=== PATIENT | male | born 1945 | race Caucasian/White ===

== ENCOUNTER 2019-09-26 14:48 | Inpatient (IN) | payer MEDICARE ==
[~2019-09-26] VITALS: Ht 188 cm; Wt 61.2 kg
--- NOTE | ~2019-09-26 | CN ---
PATIENT NAME:BRENDA FOURNIER MEDICAL RECORD: [id number] : 43 LOCATION:[address] ADMIT DATE: 09/26/19 ACCOUNT: [id number] CONSULTING PHYSICIAN: ZARINA AYERS MD REFERRING PHYSICIAN: EUGENE ALVAREZ MD DATE OF CONSULTATION: 09/26/2019 Cardiology Consultation ADMITTING DIAGNOSES: 1. Chest pain, atypical. 2. Nausea and vomiting. 3. Coronary artery disease. 4. Previous PTCA and stent. 5. Hypertension. 6. Hyperlipidemia. 7. Diabetes. HISTORY OF PRESENT ILLNESS: Mr. Fournier has had 3 days of nausea and vomiting. Today, he started developing chest pain. He does have a history of coronary artery disease, PTCA and stent at another institution. His chest pain is having today is not at all like the pain he had with his angina. This is definitely positional pain and outlines the center of his chest and his esophagus with this. It is worse when he was actually vomiting. His EKG is with no ST-T changes. Troponin is normal. PHYSICAL EXAMINATION: CONSTITUTIONAL/GENERAL APPEARANCE: Well nourished, well developed, appears stated age. EYES: Lids and conjunctivae noninjected. No discharge. No pallor. ENT: Lips within normal limit. No cyanosis. No pallor. NECK: Carotid arteries, bilateral normal upstroke. No bruits. No thrills. No jugular venous pressure or distention. CERVICAL LYMPH NODES: Nontender. Nonenlarged. THYROID: Not enlarged. No nodules. CARDIOVASCULAR: Precordial exam, nondisplaced. No heaves or pericardial thrills. Rate and rhythm, regular. Heart sounds, normal S1, normal S2. No S3, no gallop, no rub. Systolic murmur, not heard. Diastolic murmur, not heard. RESPIRATORY: Respiratory effort, unlabored. Normal curvature. No thoracic deformity. No chest wall tenderness. Percussion, resonant. Auscultation, clear. No wheezes, no rales, no rhonchi. ABDOMEN: Soft, nondistended, nontender. No abdominal pain, no vomiting and normal appetite. MUSCULOSKELETAL: No joint tenderness, normal gait, normal tone. SKIN: Warm and dry. OVERALL IMPRESSION: Atypical chest pain from the nausea and vomiting. This is not like his previous angina. Troponin is normal. EKG is normal. At this time, no other cardiac workup or treatment is necessary. TRANSINT:[id number] Voice Confirmation ID: [id number] DOCUMENT ID: [id number] CONSULT REPORT [id number] BRENDA FOURNIER JEFFREY MD CC: [id number] DICTATION DATE: 09/26/191614 PRINT MANAGER: 09/26/19 2246 ADM IN [facility] [address] [place] [address]
[~2019-09-26 14:48] MED LIST: ATIVAN2 MG PO; BAYER CHEWABLE81 MG PO; CLEOCIN HCL300 MG PO; DOLOPHINE HCL10 MG PO; EFFEXOR75 MG PO; EUCERIN CREAM120 GM; FISH OIL 500 MG1 CAP PO; GLUCOTROL 5 MG T5 MG PO; HUMALOG 30100 UNITS/ SC; INVANZ1 G/VIAL IM; LAC-HYDRIN 5226 ML TP; LASIX40 MG PO; MIRALAX17 GM PO; MORPHINE SULFAT30 M3 PO; MULTI-DAY VITAM1 TAB PO; NARCAN INJ0.4 MG/ML IV; NORCO 10/325 TA1 TA1 PO; PEPCID20 MG PO; PERCOCET 10/3251 TA1 PO; PLAVIX75 MG PO; PROTONIX40 MG PO; RESTORIL15 MG PO; RIFADIN300 MG PO; RISPERDAL0.25 MG PO; TYLENOL325 MG PO; VITAMIN D2000 UNIT PO; VITAMIN D31000 UNIT PO; XYLOCAINE HCL 2%5 ML IL; ZOFRAN4 MG PO
[2019-09-26 15:36] LABS: CALC OSMOLALITY 286 mosm/kg (275-300); CARBON DIOXIDE 35.7 mmol/L (21.0-32.0); CHLORIDE - SERUM 94 mmol/L (98-107); CREATININE - SERUM 1.5 mg/dL (0.6-1.3); GLUCOSE 106 mg/dL (74-106); POTASSIUM - SERUM 3.2 mmol/L (3.5-5.1); SODIUM 140 mmol/L (136-145); UREA NITROGEN 36 mg/dL (7-18); eGFR NON AFRICAN AMERICAN 48 mL/min (90-120)
[2019-09-26 15:37] LABS: INR 1.44 (0.85-1.17)
[2019-09-26 15:38] LABS: APTT 40.6 SECONDS (22.8-39.4)
[2019-09-26 15:43] LABS: BASOPHILS 0.4 % (0-2); EOSINOPHILS 1.9 % (0-7); HEMATOCRIT 44.9 % (42.0-54.0); HEMOGLOBIN 15.6 g/dL (13.5-17.5); IMMATURE GRANULOCYTES 0.1 % (0-5); LYMPHOCYTES 21.8 % (15-50); MCH 31.9 pg (26.0-34.0); MCHC 34.7 g/dL (31.0-37.0); MCV 91.8 fL (80.0-100.0); MEAN PLATELET VOLUME 10.7 fL (7.4-10.4); MONOCYTES 10.2 % (2-11); NEUTROPHILS 65.6 % (40-80); RBC 4.89 10x6/uL (4.20-6.10); RDW 15.6 % (11.5-14.5); WBC 8.3 10x3/uL (4.8-10.8)
[2019-09-26 15:47] LABS: PLATELET COUNT 84 10x3/uL (130-400)
[2019-09-26 15:53] LABS: ALKALINE PHOSPHATASE 163 U/L (46-116); ALT (SGPT) 30 U/L (10-68); BILIRUBIN - TOTAL 4.28 mg/dL (0.2-1.3); CKMB 1.3 U/L (0.0-3.6); CREATINE KINASE 79 UL (21-232); MAGNESIUM - SERUM 1.8 mg/dL (1.8-2.4); PROTEIN - SERUM 8.1 g/dL (6.4-8.2); TROPONIN-I < 0.017 ng/mL (0.000-0.060)
[2019-09-26 16:38] VITALS: BP 145/88
[2019-09-26 16:38] LABS: APPEARANCE CLEAR (CLEAR); BILIRUBIN NEGATIVE (NEGATIVE); COLOR YELLOW (YELLOW); GLUCOSE NEGATIVE (NEGATIVE); KETONE NEGATIVE (NEGATIVE); NITRITE NEGATIVE (NEGATIVE); PROTEIN NEGATIVE (NEGATIVE); UROBILINOGEN NORMAL (NORMAL)
[2019-09-26 17:25] LABS: PLATELET ESTIMATE DECREASED
--- NOTE | 2019-09-26 18:33 | NUR ---
I have reviewed this patient and I concur with the Shift Assessment completed by the Licensed Practical Nurse today this shift.
[2019-09-26 18:40] VITALS: BP 100/69
--- NOTE | 2019-09-26 19:15 | NUR ---
PT TO ROOM 2130 VIA WHEELCHAIR ACCOMPANIED BY HOSPITAL STAFF. DENIES N/V/D AT THIS TIME. RIGHT LEG AMPUTATION NOTED, PT REPORTS FROM 2012. REQUESTING SANDWICH AND SODA, PROVIDED. DENIES ANY OTHER NEEDS AT THIS TIME. BED IN LOWEST POSITION, SR X2, CALL LIGHT WITHIN REACH. WILL CONTINUE TO MONITOR.
[2019-09-27] VITALS (7 sets, daily range): BP systolic 100–131; BP diastolic 54–73; BMI 17.3
[2019-09-27] MEDS ORDERED: GLUCOPHAGE500 MG PO (00:54)
[2019-09-27 06:55] LABS: BASOPHILS 0.5 % (0-2); EOSINOPHILS 1.8 % (0-7); HEMATOCRIT 40.2 % (42.0-54.0); HEMOGLOBIN 12.4 g/dL (13.5-17.5); IMMATURE GRANULOCYTES 0.2 % (0-5); LYMPHOCYTES 23.3 % (15-50); MCH 29.1 pg (26.0-34.0); MCHC 30.8 g/dL (31.0-37.0); MCV 94.4 fL (80.0-100.0); MEAN PLATELET VOLUME 11.2 fL (7.4-10.4); MONOCYTES 15.5 % (2-11); NEUTROPHILS 58.7 % (40-80); PLATELET COUNT 70 10x3/uL (130-400); RBC 4.26 10x6/uL (4.20-6.10); WBC 6.5 10x3/uL (4.8-10.8)
[2019-09-27 07:13] LABS: PLATELET ESTIMATE DECREASED
[2019-09-27 07:19] LABS: ALBUMIN 3.3 g/dL (3.4-5.0); ANION GAP 14.3 mmol/L (8-16); BILIRUBIN - TOTAL 2.78 mg/dL (0.2-1.3); CALCIUM 8.1 mg/dL (8.5-10.1); CARBON DIOXIDE 30.1 mmol/L (21.0-32.0); CREATININE - SERUM 1.5 mg/dL (0.6-1.3); MAGNESIUM - SERUM 1.5 mg/dL (1.8-2.4); POTASSIUM - SERUM 3.4 mmol/L (3.5-5.1); PROTEIN - SERUM 6.5 g/dL (6.4-8.2)
--- NOTE | 2019-09-27 07:25 | NUR ---
ASSESSMENT DONE, DENIES NEEDS
--- NOTE | 2019-09-27 14:12 | NUR ---
I have reviewed this patient and I concur with the Shift Assessment completed by the Licensed Practical Nurse today this shift.
--- NOTE | 2019-09-27 22:20 | NUR ---
INITIAL ROUNDS COMPLETED AT 1915 HRS. PT DENIES ANY DISCOMFORT. ASSESSMENT COMPLETED AT 2005 HRS. VSS ALERT AND ORIENTED TO PERSON, PLACE AND TIME. R AKA NOTED. DRY, SCABBY AREA NOTED TO L HEEL. LUNGS DIMINISHED IN BASES BILAT. IV TO LFA WITH NS AT 75CC/HR. PM FSBS 168. REG INSULIN 2UNITS GIVEN SUB-Q TO UPPER R ARM. PM MEDS GIVEN. PM SNACK SERVED. PT CURRENTLY RESTING WTIH EYES CLOSED. RESP EVEN AND REGULAR. SR UP X2, CALL LIGHT WITHIN REACH.
[2019-09-28] VITALS: BP 120/70
--- NOTE | 2019-09-28 00:49 | NUR ---
PT RESTING WITH EYES CLOSED. RESP EVEN AND REGULAR. SR UP X2, CALL LIGHT WITHIN REACH.
--- NOTE | 2019-09-28 02:28 | NUR ---
PT RESTING WITH EYES CLOSED. RESP EVEN AND REGULAR. SR UP X2,CALL LIGHT WITHIN REACH.
[2019-09-28 04:00] VITALS: BP 106/59
--- NOTE | 2019-09-28 04:21 | NUR ---
PT RESTING WITH EYES CLOSED. RESP EVEN AND REGULAR. SR UP X2, CALL LIGHT WITHIN REACH.
[2019-09-28 05:13] LABS: BASOPHILS 0.2 % (0-2); EOSINOPHILS 4.3 % (0-7); HEMATOCRIT 37.2 % (42.0-54.0); IMMATURE GRANULOCYTES 0.2 % (0-5); LYMPHOCYTES 32.9 % (15-50); MCH 30.1 pg (26.0-34.0); MCHC 32.3 g/dL (31.0-37.0); MCV 93.2 fL (80.0-100.0); MEAN PLATELET VOLUME 11.6 fL (7.4-10.4); MONOCYTES 9.7 % (2-11); NEUTROPHILS 52.7 % (40-80); PLATELET COUNT 72 10x3/uL (130-400); RBC 3.99 10x6/uL (4.20-6.10); RDW 15.6 % (11.5-14.5)
[2019-09-28 05:23] LABS: WBC 4.1 10x3/uL (4.8-10.8)
[2019-09-28 05:29] LABS: ANION GAP 8.4 mmol/L (8-16); CALCIUM 8.4 mg/dL (8.5-10.1); CREATININE - SERUM 1.3 mg/dL (0.6-1.3); POTASSIUM - SERUM 3.4 mmol/L (3.5-5.1)
[2019-09-28 05:34] LABS: MAGNESIUM - SERUM 1.9 mg/dL (1.8-2.4); PHOSPHOROUS 2.9 mg/dL (2.5-4.9)
--- NOTE | 2019-09-28 06:00 | NUR ---
VSS THROUGHOUT NIGHT. AM FSBS 115. NO COVERAGE NEEDED. AM K+ 3.4. KCL 40MEQ PO GIVEN PER ELECTROLYTE PROTOCOL. NEEDS MET; WILL CONTINUE TO MONITOR.
--- NOTE | 2019-09-28 07:39 | NUR ---
PT RECEIVED IN BED ASLEEP BUT AROUSED ON ENTERING ROOM. HE FELL BACK TO SLEEP WHILE UPDATING BOARD. NO COMPLAINTS AT PRESENT.
[2019-09-28 08:48] VITALS: BP 117/58
[2019-09-28 11:05] LABS: % SATURATION 18 % (15-55); IRON 51 ug/dl (35-150); TOTAL IRON BIND CAPACITY 279 ug/dl (260-445); UNSAT IRON BIND CAPACITY 228 ug/dl (150-375)
[2019-09-28 12:00] VITALS: Ht 188 cm; Wt 61.2 kg
[2019-09-28 13:08] VITALS: BP 127/66
--- NOTE | 2019-09-28 14:11 | NUR ---
PT NOT WANTING DULCOLOX OR MAG CITRATE. TALKED INTO TAKING MIRALAX FOR NOW AND SEEING IF BM HAPPENS. INSTRUCTED WOULD NEED TO TRY OTHER MEDS IF NO RESULTS.
[2019-09-28 17:00] VITALS: BP 116/65
[2019-09-28 20:40] VITALS: BP 111/56
--- NOTE | 2019-09-28 22:37 | NUR ---
INITIAL ROUNDS COMPLETED AT 1910 HRS. PT DENIED ANY DISCOMFORT. ASSESSMET COMPLETED AT 201O HRS. VSS. ALERT AND ORIENTED TO PERSON, PLACE AND TIME. AMANDA NOTED. LUNGS DIMINISHED IN BASES BILAT. IV TO LFA WITH NS AT 75CC/HR. IV PATENT. SMALL DRY FLAKY AREA NOTED TO L HEEL. BRUIES TO BILAT ARMS. PM FSBS 168. 2 UNITS REG INSULIN GIVEN SUB-Q TO UPPER R ABD. PM MEDS GIVEN. PT REFUSES MIRALX. PM SNACK SERVED. PT CURRENTLY RESTING WITH EYES CLOSED. RESP EVEN AND REGULAR. SR UP X2, CALL LIGHT WITHIN REACH.
[2019-09-29 00:30] VITALS: BP 121/54
--- NOTE | 2019-09-29 00:38 | NUR ---
COFFEE GIVEN PER REQUEST. PT DENIES ANY DISCOMFORT. SR UP X2, CALL LIGHT WITHIN REACH.
--- NOTE | 2019-09-29 02:24 | NUR ---
PT RESTING WITH EYES CLOSED. RESP EVEN AND REGULAR. SR UP X2, CALL LIGHT WITHIN REACH.
[2019-09-29 04:36] VITALS: BP 127/64
--- NOTE | 2019-09-29 04:47 | NUR ---
PT AWAKE; DENIES ANY DISCOMFORT. CALL LIGHT WITHIN REACH.
--- NOTE | 2019-09-29 06:36 | NUR ---
VSS THROUGHOUT NIGHT. PT DENIED ANY DISCOMFORT. AM FSBS 152. PT REFUSED INSULIN. NEEDS MET; WILL CONTINUE TO MONITOR.
--- NOTE | 2019-09-29 07:25 | NUR ---
PT RESTING. RR EVEN AND UNLABORED. DENIES NEEDS OR PAIN AT THIS TIME. BED INLOWEST POSITION. CALL LIGHT WITHIN REACH. WILL CONTINUE TO MONITOR.
[2019-09-29 08:04] LABS: BASOPHILS 0.5 % (0-2); EOSINOPHILS 4.1 % (0-7); HEMATOCRIT 37.1 % (42.0-54.0); HEMOGLOBIN 12.3 g/dL (13.5-17.5); LYMPHOCYTES 23.7 % (15-50); MCH 30.8 pg (26.0-34.0); MCHC 33.2 g/dL (31.0-37.0); MEAN PLATELET VOLUME 11.5 fL (7.4-10.4); NEUTROPHILS 63.7 % (40-80); PLATELET COUNT 70 10x3/uL (130-400); RBC 3.99 10x6/uL (4.20-6.10); RDW 15.5 % (11.5-14.5); WBC 4.4 10x3/uL (4.8-10.8)
[2019-09-29 08:13] LABS: ANION GAP 12.8 mmol/L (8-16); CALCIUM 8.5 mg/dL (8.5-10.1); CARBON DIOXIDE 28.1 mmol/L (21.0-32.0); CREATININE - SERUM 1.1 mg/dL (0.6-1.3); MAGNESIUM - SERUM 1.6 mg/dL (1.8-2.4); PHOSPHOROUS 2.4 mg/dL (2.5-4.9); POTASSIUM - SERUM 3.9 mmol/L (3.5-5.1)
[2019-09-29 09:59] VITALS: BP 135/74; BP 158/95
[2019-09-29 11:04] LABS: PLATELET ESTIMATE DECREASED
[2019-09-29 11:05] LABS: ROULEAUX OCC
[2019-09-29 12:32] VITALS: BP 145/83
--- NOTE | 2019-09-29 17:18 | MORECARE ---
CASE MANAGEMENT DISCHARGE SUMMARY PATIENT: BRENDA FOURNIER UNIT: [id number] ADM DATE: 09/26/19 AGE: 74 : 43 SEX: M ROOM/BED: D.2130 AUTHOR: ASHLEY SOLOMON PHYSICIAN: REFERRING PHYSICIAN: EUGENE ALVAREZ MD DATE OF SERVICE: 09/29/19 Discharge Plan Patient Name: BRENDA FOURNIER [facility] [facility] 1945 Planned Disposition: Home Anticipated Discharge Date: Discharge Date: Expected LOS: Initial Reviewer: [id number] Initial Review Date: 09/26/2019 Generated: 09/29/19 6:17 pm DCPIA - Discharge Planning Initial Assessment Updated by [email or web address]: Patrick Rodriguez on 09/29/19 5:16 pm * Is the patient Alert and Oriented? Yes * How many steps to enter\exit or inside your home? RAMP * PCP DR. ANTON [place] * Pharmacy [facility] IN [place] * Preadmission Environment Home with Family * ADLs Independent * Equipment Hospital Bed Power Chair or Electric Scooter Shower Chair Trapeze Wheelchair * Other Equipment NO MEDICAL EQUIPMENT PROVIDER [facility] POWER CHAIR IS NOT CURRENTLY WORKING * List name and contact numbers for known caregivers / representatives who currently or will assist patient after discharge: ESTELA MURPHY, CAREGIVER, LESVIA FOURNIER, SON, * Verbal permission to speak to the caregivers and representatives has been obtained from the patient. Yes * Community resources currently utilized None * Please name any agencies selected above. NONE * Additional services required to return to the preadmission environment? No * Can the patient safely return to the preadmission environment? Yes * Has this patient been hospitalized within the prior 30 days at any hospital? No Patient Name: BRENDA FOURNIER Page [phone] at 1718 All edits/amendments must be made on the electronic document DICTATION DATE: 09/29/191716 UPPER TRIMMER: SARAH 09/29/191716 RPT#: [id number] DC DATE: STATUS: ADM IN [facility] [address] [place] [address] END OF REPORT
--- NOTE | 2019-09-29 17:26 | MORECARE ---
CASE MANAGEMENT DISCHARGE SUMMARY PATIENT: BRENDA FOURNIER UNIT: [id number] ADM DATE: 09/26/19 AGE: 74 : 44 SEX: M ROOM/BED: D.2130 AUTHOR: NEHA,DOC PHYSICIAN: REFERRING PHYSICIAN: EUGENE ALVAREZ MD DATE OF SERVICE: 09/29/19 Discharge Plan Patient Name: BRENDA FOURNIER Facility: [facility]:[place] : 1945 Planned Disposition: Home Anticipated Discharge Date: Discharge Date: Expected LOS: Initial Reviewer: [email or web address] Initial Review Date: 09/26/2019 Generated: 09/29/19 6:26 pm Comments DCP- Discharge Planning Updated by [id number]: Patrick Rodriguez on 09/29/19 4:[address] Patient Name: BRENDA FOURNIER Admission Status: ER Accout number: [id number] Admission Date: 09-26-2019 : 1945 Admission Diagnosis: Attending: EUGENE ALVAREZ Current LOS: 3 Anticipated DC Date: Planned Disposition: Home Primary Insurance: MEDICARE A & B Discharge Planning Comments: CM RECEIVED ORDER TO VERY PT HAVING HOME CAREGIVER. CM MET WITH PT IN ROOM TO DISCUSS DISCHARGE PLANNING AND NEEDS. PT REPORTS LIVING AT HOME INDEPENDENTLY WITH A CAREGIVER WHOM ASSISTS WITH TRANSPORTATION, CLEANING AND COOKING. SHE IS NOT PAID BUT LIVES IN PT'S HOME. SHE IS HOME DURING NIGHT HOURS AND IN AND OUT DURING DAYTIME HOURS. PT HAS NON WORKING POWER WHEELCHAIR, HOSPITAL BED, TRAPEZE, WHEELCHAIR AND SHOWER CHAIR WITH NO MEDICAL EQUIPMENT PROVIDER PREFERENCE. PT HAS NO OUTSIDE SERVICES ASSISTING IN THE HOME. CM DISCUSSED AVAILABILITY OF HOME HEALTH, REHAB SERVICES AND MEDICAL EQUIPMENT. PT DENIES DISCHARGE NEEDS, REPORTS HIS CAREGIVER WILL PICK HIM UP FOR DISCHARGE HOME. CM TO CONTINUE TO FOLLOW AND ASSIST IF NEEDED. Adult Secondary Education Instructor: Patrick Rodriguez DCPIA - Discharge Planning Initial Assessment Updated by [id number]: Patrick Rodriguez on 09/29/19 5:16 pm * Is the patient Alert and Oriented? Yes * How many steps to enter\exit or inside your home? RAMP * PCP DR. ANTON [place] * Pharmacy [facility] IN [place] * Preadmission Environment Home with Family * ADLs Independent * Equipment Hospital Bed Power Chair or Electric Scooter Shower Chair Trapeze Wheelchair * Other Equipment NO MEDICAL EQUIPMENT PROVIDER [employer]ERNECE POWER CHAIR IS NOT CURRENTLY WORKING * List name and contact numbers for known caregivers / representatives who currently or will assist patient after discharge: ESTELA MURPHY, CAREGIVER, LESVIA FOURNIER, SON, * Verbal permission to speak to the caregivers and representatives has been obtained from the patient. Yes * Community resources currently utilized None * Please name any agencies selected above. NONE * Additional services required to return to the preadmission environment? No * Can the patient safely return to the preadmission environment? Yes * Has this patient been hospitalized within the prior 30 days at any hospital? No Last DP export: 09/29/19 4:18 Patient Name: BRENDA FOURNIER Page [id number] at 1726 All edits/amendments must be made on the electronic document DICTATION DATE: 09/29/191725 DULITE MACHINE BLUER: SARAH 09/29/191725 RPT#: [id number] [place] DATE: STATUS: ADM IN [facility] [address] [place] [address] END OF REPORT
--- NOTE | 2019-09-29 17:56 | NUR ---
I have reviewed this patient and I concur with the Shift Assessment completed by the Licensed Practical Nurse today this shift.
[2019-09-29 18:26] VITALS: BP 140/79
--- NOTE | 2019-09-29 19:34 | NUR ---
EVENING ROUNDS COMPLETE. PT SITTING UP IN BED, AAOX4. PT DENIES ANY PAIN OR NEEDS AT THIS TIME. CL IN REACH, BED IN LOWEST POSITION.
[2019-09-29 20:37] VITALS: BP 141/71
[2019-09-30 00:30] VITALS: BP 127/69
[2019-09-30 04:32] VITALS: BP 132/68
[2019-09-30 06:04] LABS: BASOPHILS 0.6 % (0-2); EOSINOPHILS 5.5 % (0-7); HEMATOCRIT 36.8 % (42.0-54.0); HEMOGLOBIN 12.1 g/dL (13.5-17.5); IMMATURE GRANULOCYTES 0.3 % (0-5); LYMPHOCYTES 26.1 % (15-50); MCH 30.4 pg (26.0-34.0); MCHC 32.9 g/dL (31.0-37.0); MCV 92.5 fL (80.0-100.0); MEAN PLATELET VOLUME 11.5 fL (7.4-10.4); MONOCYTES 6.9 % (2-11); NEUTROPHILS 60.6 % (40-80); PLATELET COUNT 63 10x3/uL (130-400); RBC 3.98 10x6/uL (4.20-6.10); RDW 15.4 % (11.5-14.5); WBC 3.5 10x3/uL (4.8-10.8)
[2019-09-30 06:21] LABS: ANION GAP 12.4 mmol/L (8-16); CALCIUM 8.6 mg/dL (8.5-10.1); CREATININE - SERUM 1.1 mg/dL (0.6-1.3); PHOSPHOROUS 2.1 mg/dL (2.5-4.9); POTASSIUM - SERUM 4.4 mmol/L (3.5-5.1)
--- NOTE | 2019-09-30 07:52 | NUR ---
PT RESTING. RR EVEN AND UNLABORED. DENIES NEEDS OR PAIN AT THIS TIME. IV NOTED TO LEFT FOREARM INFUSING NS @ 75MLS/HR. BED IN LOWEST POSITION. ALL LIGHT WITHIN REACH. WILL CONTINUE TO MONITOR.
[2019-09-30 08:16] VITALS: BP 144/76
[2019-09-30 12:11] VITALS: BP 146/80
--- NOTE | 2019-09-30 12:17 | NUR ---
NUTRITION F/U PT TOLERATING RENAL DIET WITH 100% INTAKE RECENT MEALS. WILL CONTINUE TO PROVIDE DIET AND MONITOR PO INTAKE. RD FOLLOWING
[2019-09-30 15:09] LABS: HEPATITIS C ANTIBODY <0.1 S/CO RAT (0.0-0.9)
[2019-09-30 15:47] VITALS: BP 124/64
--- NOTE | 2019-09-30 16:01 | NUR ---
I have reviewed this patient and I concur with the Shift Assessment completed by the Licensed Practical Nurse today this shift.
--- NOTE | 2019-09-30 19:34 | NUR ---
RECEIVED UP IN BED WITH EYES OPENA ND TV ON. ALERT AND ORIENTED X4. UP AD RAD TO B/R. O2 @ 2 LITERS PER N/C IN PLACE. RIGHT AKA. LEFT HEEL BRAIN. IV TO LEFT FA WITH NS AT 75CC/HR. DENIES ANY NEEDS AT THIS TIME.
[2019-09-30 20:00] VITALS: BP 145/76
[2019-10-01] VITALS: BP 135/66
[2019-10-01 04:00] VITALS: BP 164/82
[2019-10-01 07:21] LABS: BASOPHILS 0.6 % (0-2); EOSINOPHILS 5.1 % (0-7); HEMATOCRIT 35.1 % (42.0-54.0); HEMOGLOBIN 11.6 g/dL (13.5-17.5); IMMATURE GRANULOCYTES 0.3 % (0-5); MCH 30.3 pg (26.0-34.0); MCV 91.6 fL (80.0-100.0); MONOCYTES 9.6 % (2-11); NEUTROPHILS 62.4 % (40-80); PLATELET COUNT 65 10x3/uL (130-400); RBC 3.83 10x6/uL (4.20-6.10); RDW 15.4 % (11.5-14.5); WBC 3.3 10x3/uL (4.8-10.8)
[2019-10-01 07:31] LABS: CALC OSMOLALITY 285 mosm/kg (275-300); CALCIUM 8.1 mg/dL (8.5-10.1); CARBON DIOXIDE 25.7 mmol/L (21.0-32.0); CHLORIDE - SERUM 108 mmol/L (98-107); GLUCOSE 89 mg/dL (74-106); MAGNESIUM - SERUM 1.9 mg/dL (1.8-2.4); PHOSPHOROUS 2.6 mg/dL (2.5-4.9); POTASSIUM - SERUM 3.8 mmol/L (3.5-5.1); SODIUM 142 mmol/L (136-145); UREA NITROGEN 24 mg/dL (7-18); eGFR NON AFRICAN AMERICAN 77 mL/min (90-120)
--- NOTE | 2019-10-01 07:50 | NUR ---
REPORT RECEIVED. WILL CONTINUE WITH POC. PT CURRENTLY LYING SEMI FOWLERS. CALL LIGHT W/I REACH. PT IS ASLEEP WITH EYES CLOSED AT THIS TIME. RR EVEN AND UNLABORED ON 2L 02. NS INFUSING @75ML/HR VIA L.FOR PIV. NO S/S OF DISTRESS NOTED. WILL CTM.
[2019-10-01 08:26] LABS: PLATELET ESTIMATE DECREASED
[2019-10-01 08:28] LABS: ANISOCYTOSIS OCC
[2019-10-01 08:42] VITALS: BP 147/80
[2019-10-01 09:24] LABS: APTT 34.4 SECONDS (22.8-39.4); INR 1.21 (0.85-1.17); PROTIME 14.8 SECONDS (11.6-15.0)
--- NOTE | 2019-10-01 12:50 | NUR ---
CM SPOKE WITH PATIENT ABOUT DC ORDERS, PATIENT STATED THAT IS PERLITE GRINDER IS [place] AND HE WILL NOT HAVE A RIDE TILL TOMORROW, PATIENT WILL BE DISCHARGED IN AM.
[2019-10-01 14:05] VITALS: BP 156/80
--- NOTE | 2019-10-01 15:50 | NUR ---
NOTIFIED PT OF THE DISCHARGE AND HE STATED THAT HE DOES NOT HAVE A RIDE HOME UNTIL TOMORROW. NOTIFIED EDITOR MAGAZINE. WILL CTM.
--- NOTE | 2019-10-01 16:06 | NUR ---
I have reviewed this patient and I concur with the Shift Assessment completed by the Licensed Practical Nurse today this shift.
[2019-10-01 16:20] VITALS: BP 149/73
--- NOTE | 2019-10-01 19:38 | NUR ---
REPORT RECIEVED AND ROUNDING COMPLETE. PATIENT LAYING IN BED IN LOW FOWLERS. EMPTIED 700CC OUT OF URINAL. PATIENT STATES HE HAS FOUND A RIDE HOME FOR TOMORROW. PATIENT STATED HE HAS NO NEEDS AT THIS TIME. PATIENT SHOWS NO S/SX OF DISTRESS AT THIS TIME. CALL LIGHT WITHIN REACH AND BED IN LOWEST LOCKED POSITION.
[2019-10-01 20:00] VITALS: BP 150/78
[2019-10-02] VITALS: BP 142/66
[2019-10-02 04:00] VITALS: BP 128/82
[2019-10-02 05:39] LABS: BASOPHILS 0.6 % (0-2); EOSINOPHILS 5.9 % (0-7); HEMATOCRIT 37.5 % (42.0-54.0); HEMOGLOBIN 12.5 g/dL (13.5-17.5); IMMATURE GRANULOCYTES 0.2 % (0-5); LYMPHOCYTES 25.5 % (15-50); MCH 30.7 pg (26.0-34.0); MCHC 33.3 g/dL (31.0-37.0); MCV 92.1 fL (80.0-100.0); MEAN PLATELET VOLUME 10.8 fL (7.4-10.4); MONOCYTES 6.1 % (2-11); NEUTROPHILS 61.7 % (40-80); RBC 4.07 10x6/uL (4.20-6.10); RDW 15.1 % (11.5-14.5)
[2019-10-02 05:42] LABS: PLATELET COUNT 88 10x3/uL (130-400); WBC 5.1 10x3/uL (4.8-10.8)
[2019-10-02 06:00] LABS: CALC OSMOLALITY 282 mosm/kg (275-300); CALCIUM 8.4 mg/dL (8.5-10.1); CARBON DIOXIDE 27.3 mmol/L (21.0-32.0); CHLORIDE - SERUM 106 mmol/L (98-107); GLUCOSE 78 mg/dL (74-106); MAGNESIUM - SERUM 1.6 mg/dL (1.8-2.4); PHOSPHOROUS 2.9 mg/dL (2.5-4.9); POTASSIUM - SERUM 3.6 mmol/L (3.5-5.1); SODIUM 141 mmol/L (136-145); UREA NITROGEN 21 mg/dL (7-18); eGFR NON AFRICAN AMERICAN 77 mL/min (90-120)
--- NOTE | 2019-10-02 07:25 | NUR ---
PT RECEIVED LAYING IN BED. HIS BLOOD SUGAR LITTLE LOW THIS MORNING, NURSE TREATED. NO COMPLAINTS AT PRESENT. WORKING ON DISCHARGE OUT TODAY.
--- NOTE | 2019-10-02 08:23 | MORECARE ---
CASE MANAGEMENT DISCHARGE SUMMARY PATIENT: BRENDA FOURNIER UNIT: [id number] ADM DATE: 09/26/19 AGE: 74 : 44 SEX: M ROOM/BED: D.2137 AUTHOR: ASHLEY SOLOMON PHYSICIAN: REFERRING PHYSICIAN: EUGENE ALVAREZ MD DATE OF SERVICE: 10/02/19 Discharge Plan Patient Name: BRENDA FOURNIER Facility: [facility]:[place] : 1945 Planned Disposition: Home Anticipated Discharge Date: 10/02/19 Discharge Date: Expected LOS: 6 Initial Reviewer: [id number] Initial Review Date: 09/26/2019 Generated: 10/02/19 9:22 am Comments DCP- Discharge Planning Updated by [id number]: Patrick Rodriguez on 10/02/19 7:[address] Patient Name: BRENDA FOURNIER Encounter No: [id number] : 1945 Primary Insurance: MEDICARE A & B Anticipated DC Date: 10-02-2019 Planned Disposition: Home DCP follow-up note: CM ADVISED THAT PT DID NOT LEAVE YESTERDAY DUE TO CAREGIVER BEING OUT OF TOWN FOR [place] AND PT NOT HAVING RIDE HOME. CM MET WITH PT IN ROOM TO DISCUSS DISCHARGE NEEDS AND PLANNING. CM DISCUSSED AVAILABILITY OF HOME HEALTH, REHAB SERVICES AND MEDICAL EQUIPMENT. PT DENIES DISCHARGE NEEDS. PT DENIES NEED OF ASSISTANCE TO GET HOME, REPORTS HE IS CALLING NOW TO GET A RIDE HOME TODAY. PT STATES IF HIS CAREGIVER IS NOT ABLE TO PICK HIM UP, HE WILL CALL MEDICAID TRANSPSORTATION HE HAS PERMISSION TO PAY THEM FOR SERVICES NEEDED. IMPORTANT MESSAGE FROM MEDICARE PROVIDED AND EXPLAINED. BEDSIDE NURSE NOTIFIED. CONGREGATIONAL CARE PASTOR NURSE NOTIFIED. ELICEO Thompson DCP- Discharge Planning Updated by [id number]: Patrick Rodriguez on 09/29/19 4:[address] Patient Name: BRENDA FOURNIER Admission Status: ER Accout number: [id number] Admission Date: 09-26-2019 : 1945 Admission Diagnosis: Attending: EUGENE ALVAREZ Current LOS: 3 Anticipated DC Date: Planned Disposition: Home Primary Insurance: MEDICARE A & B Discharge Planning Comments: CM RECEIVED ORDER TO VERY PT HAVING HOME CAREGIVER. CM MET WITH PT IN ROOM TO DISCUSS DISCHARGE PLANNING AND NEEDS. PT REPORTS LIVING AT HOME INDEPENDENTLY WITH A CAREGIVER WHOM ASSISTS WITH TRANSPORTATION, CLEANING AND COOKING. SHE IS NOT PAID BUT LIVES IN PT'S HOME. SHE IS HOME DURING NIGHT HOURS AND IN AND OUT DURING DAYTIME HOURS. PT HAS NON WORKING POWER WHEELCHAIR, HOSPITAL BED, TRAPEZE, WHEELCHAIR AND SHOWER CHAIR WITH NO MEDICAL EQUIPMENT PROVIDER PREFERENCE. PT HAS NO OUTSIDE SERVICES ASSISTING IN THE HOME. CM DISCUSSED AVAILABILITY OF HOME HEALTH, REHAB SERVICES AND MEDICAL EQUIPMENT. PT DENIES DISCHARGE NEEDS, REPORTS HIS CAREGIVER WILL PICK HIM UP FOR DISCHARGE HOME. CM TO CONTINUE TO FOLLOW AND ASSIST IF NEEDED. Machine Wood Sander: Patrick Rodriguez DCPIA - Discharge Planning Initial Assessment Updated by [id number]: Patrick Rodriguez on 09/29/19 5:16 pm * Is the patient Alert and Oriented? Yes * How many steps to enter\exit or inside your home? RAMP * PCP DR. ANTON [place] * Pharmacy [facility] IN [place] * Preadmission Environment Home with Family * ADLs Independent * Equipment Hospital Bed Power Chair or Electric Scooter Shower Chair Trapeze Wheelchair * Other Equipment NO MEDICAL EQUIPMENT PROVIDER PREFERNECE POWER CHAIR IS NOT CURRENTLY WORKING * List name and contact numbers for known caregivers / representatives who currently or will assist patient after discharge: ESTELA MURPHY, CAREGIVER, LESVIA FOURNIER, SON, * Verbal permission to speak to the caregivers and representatives has been obtained from the patient. Yes * Community resources currently utilized None * Please name any agencies selected above. NONE * Additional services required to return to the preadmission environment? No * Can the patient safely return to the preadmission environment? Yes * Has this patient been hospitalized within the prior 30 days at any hospital? No Coverage Notice Reviewer: [id number] - Patrick Rodriguez Notice Issued Date-Time: 10/02/2019 7:35 Notice Type: IM Discharge Notice Notice Delivered To: Patient Relationship to Patient: Painter Mirror Name: Delivery Method: HAND - Hand Delivered Adelita Days: Prior Verbal Notification: Recipient Understood Notice: Yes Recipient Signature: Yes Med Rec Note Co-signed by Attending: Coverage Notice Comment: Last DP export: 09/29/19 4:26 Patient Name: BRENDA FOURNIER Page [id number] at 0823 All edits/amendments must be made on the electronic document DICTATION DATE: 10/02/19821 SPORTS STATISTICIAN: SARAH 10/02/19821 RPT#: [id number] DC DATE: STATUS: ADM IN [facility] [address] [place] [address] END OF REPORT
[2019-10-02 09:10] VITALS: BP 128/62
--- NOTE | 2019-10-02 10:38 | NUR ---
UPON ADMIT PATIENT HAS NOT HAD A FLU SHOT. WHEN ASKED IF HE WANTS ONE, HE TELLS ANDREI BARR PRIMARY NURSE THAT HE HAS HAD ONE.
--- NOTE | 2019-10-02 12:13 | MORECARE ---
CASE MANAGEMENT DISCHARGE SUMMARY PATIENT: BRENDA FOURNIER UNIT: [id number] ADM DATE: 09/26/19 AGE: 74 : 44 SEX: M ROOM/BED: D.3370 AUTHOR: ASHLEY SOLOMON PHYSICIAN: REFERRING PHYSICIAN: EUGENE ALVAREZ MD DATE OF SERVICE: 10/02/19 Discharge Plan Patient Name: BRENDA FOURNIER Facility: [facility]:[place] : 1945 Planned Disposition: Home Anticipated Discharge Date: 10/02/19 Discharge Date: Expected LOS: 6 Initial Reviewer: [id number] Initial Review Date: 09/26/2019 Generated: 10/02/19 1:12 pm Comments DCP- Discharge Planning Updated by [id number]: Patrick Rodriguez on 10/02/19 11:[address] Patient Name: BRENDA FOURNIER Encounter No: [id number] : 1945 Primary Insurance: MEDICARE A & B Anticipated DC Date: 10-02-2019 Planned Disposition: Home DCP follow-up note: CM ADVISED THAT PT DID NOT LEAVE YESTERDAY DUE TO CAREGIVER BEING OUT OF TOWN FOR [place] AND PT NOT HAVING RIDE HOME. CM MET WITH PT IN ROOM TO DISCUSS DISCHARGE NEEDS AND PLANNING. CM DISCUSSED AVAILABILITY OF HOME HEALTH, REHAB SERVICES AND MEDICAL EQUIPMENT. PT DENIES DISCHARGE NEEDS. PT DENIES NEED OF ASSISTANCE TO GET HOME, REPORTS HE IS CALLING NOW TO GET A RIDE HOME TODAY. PT STATES IF HIS CAREGIVER IS NOT ABLE TO PICK HIM UP, HE WILL CALL MEDICAID TRANSPSORTATION HE HAS PERMISSION TO PAY THEM FOR SERVICES NEEDED. IMPORTANT MESSAGE FROM MEDICARE PROVIDED AND EXPLAINED. BEDSIDE NURSE NOTIFIED. PERSONAL LINES INSURANCE ADVISOR NURSE NOTIFIED. Patrick Rodriguez, CASE MANAGEMENT Appended by Patrick Rodriguez on 10/02/2019 12:10 PHOTOCOPYING EQUIPMENT MECHANIC: CM SPOKE TO PT IN ROOM AT HIS REQUEST, PT REPORTS HAVING NO FAMILY OR FRIENDS AVAILABLE TO BRING HIS WHEELCHAIR OR PICK HIM UP. PT IS NOT ABLE TO RIDE [place] WITHOUT HIS WHEELCHAIR. PT HAS CALLED AND BOOKED A RIDE WITH MODIFIED [employer]BILE FOR 0900 IN THE MORNING MODIFIED MOBILE IS BOOKED WITH TRANSPORT CLIENTS TODAY. CM NOTIFED PERSONAL LINES INSURANCE ADVISOR NURSE. ELICEO SAM DCP- Discharge Planning Updated by [id number]: Patrick Rodriguez on 09/29/19 4:[address] Patient Name: BRENDA FOURNIER Admission Status: ER Accout number: [id number] Admission Date: 09-26-2019 : 1945 Admission Diagnosis: Attending: EUGENE ALVAREZ Current LOS: 3 Anticipated DC Date: Planned Disposition: Home Primary Insurance: MEDICARE A & B Discharge Planning Comments: CM RECEIVED ORDER TO VERY PT HAVING HOME CAREGIVER. CM MET WITH PT IN ROOM TO DISCUSS DISCHARGE PLANNING AND NEEDS. PT REPORTS LIVING AT HOME INDEPENDENTLY WITH A CAREGIVER WHOM ASSISTS WITH TRANSPORTATION, CLEANING AND COOKING. SHE IS NOT PAID BUT LIVES IN PT'S HOME. SHE IS HOME DURING NIGHT HOURS AND IN AND OUT DURING DAYTIME HOURS. PT HAS NON WORKING POWER WHEELCHAIR, HOSPITAL BED, TRAPEZE, WHEELCHAIR AND SHOWER CHAIR WITH NO MEDICAL EQUIPMENT PROVIDER PREFERENCE. PT HAS NO OUTSIDE SERVICES ASSISTING IN THE HOME. CM DISCUSSED AVAILABILITY OF HOME HEALTH, REHAB SERVICES AND MEDICAL EQUIPMENT. PT DENIES DISCHARGE NEEDS, REPORTS HIS CAREGIVER WILL PICK HIM UP FOR DISCHARGE HOME. CM TO CONTINUE TO FOLLOW AND ASSIST IF NEEDED. Anodize Machine Operator: Patrick Rodriguez DCPIA - Discharge Planning Initial Assessment Updated by [id number]: Patrick Rodriguez on 09/29/19 5:16 pm * Is the patient Alert and Oriented? Yes * How many steps to enter\exit or inside your home? RAMP * PCP TONO HOOPER * Pharmacy [facility] IN [place] * Preadmission Environment Home with Family * ADLs Independent * Equipment Hospital Bed Power Chair or Electric Scooter Shower Chair Trapeze Wheelchair * Other Equipment NO MEDICAL EQUIPMENT PROVIDER PREFERNECE POWER CHAIR IS NOT CURRENTLY WORKING * List name and contact numbers for known caregivers / representatives who currently or will assist patient after discharge: ESTELA MURPHY, CAREGIVER, LESVIA FOURNIER, SON, * Verbal permission to speak to the caregivers and representatives has been obtained from the patient. Yes * Community resources currently utilized None * Please name any agencies selected above. NONE * Additional services required to return to the preadmission environment? No * Can the patient safely return to the preadmission environment? Yes * Has this patient been hospitalized within the prior 30 days at any hospital? No Coverage Notice Reviewer: [id number] - Patrick Rodriguez Notice Issued Date-Time: 10/02/2019 7:35 Notice Type: IM Discharge Notice Notice Delivered To: Patient Relationship to Patient: Upholstery Estimator Name: Delivery Method: HAND - Hand Delivered Adelita Days: Prior Verbal Notification: Recipient Understood Notice: Yes Recipient Signature: Yes Med Rec Note Co-signed by Attending: Coverage Notice Comment: Last DP export: 10/02/19 7:23 Patient Name: BRENDA FOURNIER Page [id number] at 1213 All edits/amendments must be made on the electronic document DICTATION DATE: 10/02/191211 GAS BRAZER: SARAH 10/02/191211 RPT#: [id number] DC DATE: STATUS: ADM IN [facility] [address] [place] [address] END OF REPORT
[2019-10-02 20:30] VITALS: BP 121/77
[2019-10-03 00:30] VITALS: BP 154/68
--- NOTE | 2019-10-03 00:30 | NUR ---
PT RESTING IN BED WITH EYES CLOSED RR EVEN AND UNLABORED. NO S/S OF DISTRESS AT THIS TIME. BED LOW CALL LIGHT WITRHIN REACH. WILL CONTINE TO MONITOR.
[2019-10-03 04:00] VITALS: BP 144/54
--- NOTE | 2019-10-03 09:04 | NUR ---
PT DISCHARGED HOME VIA WHEELCHAIR. PIV REMOVED WITH CATHETER TIP FULLY INTACT. PT REFUSED TO SIGN DISCHARGE PAPEWORK STATING "IM NOT SIGNING IT BECAUSE THEY NEVER FOUND MY CLOTHES, THEY ARE GOING TO BILL ME EITHER WAY." ALL VALUABLES WERE REMOVED FROM THE ROOM.
--- NOTE | 2019-10-03 09:26 | MORECARE ---
CASE MANAGEMENT DISCHARGE SUMMARY PATIENT: BRENDA FOURNIER UNIT: [id number] ADM DATE: 09/26/19 AGE: 74 : 43 SEX: M ROOM/BED: D.6755 AUTHOR: ASHLEY SOLOMON PHYSICIAN: REFERRING PHYSICIAN: EUGENE ALVAREZ MD DATE OF SERVICE: 10/03/19 Discharge Plan Patient Name: BRENDA FOURNIER Facility: [facility]:[place] : 1945 Planned Disposition: Home Anticipated Discharge Date: 10/03/19 Discharge Date: 10/03/2019 Expected LOS: 7 Initial Reviewer: [id number] Initial Review Date: 09/26/2019 Generated: 10/03/19 10:26 am Comments DCP- Discharge Planning Updated by [email or web address]: Patrick Wilhelm on 10/02/19 11:[address] Patient Name: BRENDA FOURNIER Encounter No: [id number] : 1945 Primary Insurance: MEDICARE A & B Anticipated DC Date: 10-02-2019 Planned Disposition: Home DCP follow-up note: CM ADVISED THAT PT DID NOT LEAVE YESTERDAY DUE TO CAREGIVER BEING OUT OF TOWN FOR [place] AND PT NOT HAVING RIDE HOME. CM MET WITH PT IN ROOM TO DISCUSS DISCHARGE NEEDS AND PLANNING. CM DISCUSSED AVAILABILITY OF HOME HEALTH, REHAB SERVICES AND MEDICAL EQUIPMENT. PT DENIES DISCHARGE NEEDS. PT DENIES NEED OF ASSISTANCE TO GET HOME, REPORTS HE IS CALLING NOW TO GET A RIDE HOME TODAY. PT STATES IF HIS CAREGIVER IS NOT ABLE TO PICK HIM UP, HE WILL CALL MEDICAID TRANSPSORTATION HE HAS PERMISSION TO PAY THEM FOR SERVICES NEEDED. IMPORTANT MESSAGE FROM MEDICARE PROVIDED AND EXPLAINED. BEDSIDE NURSE NOTIFIED. DRAFTER CHIEF DESIGN NURSE NOTIFIED. Patrick Wilhelm, CASE MANAGEMENT Appended by Patrick Wilhelm on 10/02/2019 12:10 STOCKBROKER: CM SPOKE TO PT IN ROOM AT HIS REQUEST, PT REPORTS HAVING NO FAMILY OR FRIENDS AVAILABLE TO BRING HIS WHEELCHAIR OR PICK HIM UP. PT IS NOT ABLE TO RIDE SCAT WITHOUT HIS WHEELCHAIR. PT HAS CALLED AND BOOKED A RIDE WITH MODIFIED MOBILE FOR 0900 IN THE MORNING MODIFIED MOBILE IS BOOKED WITH TRANSPORT CLIENTS TODAY. CM NOTIFED DRAFTER CHIEF DESIGN NURSE. PATRICK WILHELM CASE MANAGEMENT DCP- Discharge Planning Updated by [id number]: Patrick Wilhelm on 09/29/19 4:[address] Patient Name: BRENDA FOURNIER Admission Status: ER Accout number: [id number] Admission Date: 09-26-2019 : 1945 Admission Diagnosis: Attending: EUGENE ALVAREZ Current LOS: 3 Anticipated DC Date: Planned Disposition: Home Primary Insurance: MEDICARE A & B Discharge Planning Comments: CM RECEIVED ORDER TO VERY PT HAVING HOME CAREGIVER. CM MET WITH PT IN ROOM TO DISCUSS DISCHARGE PLANNING AND NEEDS. PT REPORTS LIVING AT HOME INDEPENDENTLY WITH A CAREGIVER WHOM ASSISTS WITH TRANSPORTATION, CLEANING AND COOKING. SHE IS NOT PAID BUT LIVES IN PT'S HOME. SHE IS HOME DURING NIGHT HOURS AND IN AND OUT DURING DAYTIME HOURS. PT HAS NON WORKING POWER WHEELCHAIR, HOSPITAL BED, TRAPEZE, WHEELCHAIR AND SHOWER CHAIR WITH NO MEDICAL EQUIPMENT PROVIDER PREFERENCE. PT HAS NO OUTSIDE SERVICES ASSISTING IN THE HOME. CM DISCUSSED AVAILABILITY OF HOME HEALTH, REHAB SERVICES AND MEDICAL EQUIPMENT. PT DENIES DISCHARGE NEEDS, REPORTS HIS CAREGIVER WILL PICK HIM UP FOR DISCHARGE HOME. CM TO CONTINUE TO FOLLOW AND ASSIST IF NEEDED. Agricultural Scientist: Patrick Wilhelm DCPIA - Discharge Planning Initial Assessment Updated by [id number]: Patrick Wilhelm on 09/29/19 5:16 pm * Is the patient Alert and Oriented? Yes * How many steps to enter\exit or inside your home? RAMP * PCP DR. ANTON [place] * Pharmacy [facility] IN [place] * Preadmission Environment Home with Family * ADLs Independent * Equipment Hospital Bed Power Chair or Electric Scooter Shower Chair Trapeze Wheelchair * Other Equipment NO MEDICAL EQUIPMENT PROVIDER PREFERNE POWER CHAIR IS NOT CURRENTLY WORKING * List name and contact numbers for known caregivers / representatives who currently or will assist patient after discharge: ESTELA MURPHY, CAREGIVER, LESVIA FOURNIER, SON, * Verbal permission to speak to the caregivers and representatives has been obtained from the patient. Yes * Community resources currently utilized None * Please name any agencies selected above. NONE * Additional services required to return to the preadmission environment? No * Can the patient safely return to the preadmission environment? Yes * Has this patient been hospitalized within the prior 30 days at any hospital? No Coverage Notice Reviewer: [id number] - Patrick Wilhelm Notice Issued Date-Time: 10/02/2019 7:35 Notice Type: IM Discharge Notice Notice Delivered To: Patient Relationship to Patient: Elevator Mechanic Apprentice Name: Delivery Method: HAND - Hand Delivered Adelita Days: Prior Verbal Notification: Recipient Understood Notice: Yes Recipient Signature: Yes Med Rec Note Co-signed by Attending: Coverage Notice Comment: Last DP export: 10/02/19 11:13 Patient Name: BRENDA FOURNIER Page [id number] at 0926 All edits/amendments must be made on the electronic document DICTATION DATE: 10/03/19925 RECEIVING DISTRIBUTION STATION OPERATOR: ASRAH 10/03/19925 RPT#: [id number] DC DATE:10/03/19 STATUS: DIS IN [facility] [address] [place] [address] END OF REPORT
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
== END 2019-10-03 09:06 | disposition home or self-care (01) | DRG 641 ==
LOC: D.ER 14:48 → D.M2 17:47
PROVIDERS: Family Medicine; Internal Medicine Hematology & Oncology; ADMIT Internal Medicine Nephrology; ATTEND Internal Medicine Nephrology
DX: E86.0 Dehydration (principal); N17.9 Acute kidney failure, unspecified; D61.818 Other pancytopenia; E87.6 Hypokalemia; R07.89 Other chest pain; E80.6 Other disorders of bilirubin metabolism; I25.10 Atherosclerotic heart disease of native coronary artery without angina pectoris; E11.51 Type 2 diabetes mellitus with diabetic peripheral angiopathy without gangrene; J44.9 Chronic obstructive pulmonary disease, unspecified; D64.9 Anemia, unspecified; I71.4 Abdominal aortic aneurysm, without rupture; E78.5 Hyperlipidemia, unspecified; K59.00 Constipation, unspecified; Z89.611 Acquired absence of right leg above knee; Z86.711 Personal history of pulmonary embolism